=== PATIENT | male | born 1950 | race Caucasian/White ===

== ENCOUNTER → 2022-07-06 | Outpatient (CLI) | payer MEDICARE ==
[~2022-07-06] MED LIST: 5-HY100C3 PO; AEC81 PO; ALBUHFA IH; ALOE JUICE PO; CONDROITIN PO; FISH PO; FLAX PO; GLUCOSE PO; ISOS60TA77 PO; LIFE PO; LISI1TAB49 PO; MESA800T PO; METO-391 PO; NITR0.4T SL; OMEGA PO; OMEP20CA12 PO; PITA4TAB2 PO; RANO10003 PO; RESV100C PO; TIOT18CA3 IH; UBID400C8 PO; VITA-73 PO
== END | disposition home or self-care (01) ==
LOC: SHCH 11:33
PROVIDERS: ATTEND Internal Medicine Cardiovascular Disease
DX: I25.10 Atherosclerotic heart disease of native coronary artery without angina pectoris (principal)
CPT/HCPCS: 93306

== ENCOUNTER 2022-09-02 06:27 | Observation (INO) | payer MEDICARE ==
[2022-08-30 11:49] LABS: BASOPHILS % (AUTO) 0.4 % (0.0-5.0); EOSINOPHILS % (AUTO) 2.6 % (0.0-8.0); HEMATOCRIT 42.9 % (42-54); LYMPHOCYTES % (AUTO) 15.6 % (21.0-51.0); MEAN CORPUSCULAR HEMOGLOBIN 31.1 pg (27.0-33.0); MEAN CORPUSCULAR HGB CONC 33.1 g/dL (32.0-36.0); MEAN CORPUSCULAR VOLUME 94.1 fL (79-99); MONOCYTES % (AUTO) 10.1 % (3.0-13.0); PLATELET COUNT (AUTO) 138 K/uL (130-400); RED BLOOD CELL COUNT(AUTO) 4.56 MIL/uL (4.50-6.20); RED CELL DISTRIBUTION WIDTH 12.8 % (11.0-15.5); WHITE BLOOD COUNT (AUTO) 6.9 K/uL (4.8-10.8)
[2022-08-30 11:53] VITALS: BP 141/65
[2022-08-30 12:02] LABS: APPEARANCE,URINE CLEAR (CLEAR); BILIRUBIN,URINE NEGATIVE (NEGATIVE); COLOR,URINE YELLOW (YELLOW); GLUCOSE, URINE (UA) NEGATIVE (NEGATIVE); KETONES,URINE NEGATIVE (NEGATIVE); LEUKOCYTE ESTERASE ,URINE NEGATIVE Leu/uL (NEGATIVE); NITRATE,URINE NEGATIVE (NEGATIVE); OCCULT BLOOD,URINE NEGATIVE (NEGATIVE); PH,URINE 5.5 (5.0-8.0); PROTEIN,URINE 10 mg/dL (NEGATIVE); UROBILINOGEN,URINE 0.2 mg/dL (0.2-1.0)
[2022-08-30 12:03] LABS: CREATININE 1.3 mg/dL (0.5-1.5); INR 0.98 (0.85-1.15); POTASSIUM 4.7 mmol/L (3.5-5.1); PROTHROMBIN TIME 11.4 SEC (9.6-11.6)
[2022-08-30 12:05] LABS: PARTIAL THROMBOPLASTIN TIME 25.9 SEC (26.3-35.5)
[2022-08-30 12:14] LABS: BACTERIA,URINE RARE /HPF (None Seen); MUCUS,URINE FEW LPF (None Seen); OTHER CASTS, URINE 6 /LPF (None Seen)
[2022-08-30 12:18] LABS: B-TYPE NATRIURETIC PEPTIDE 39 pg/mL (0-100)
[~2022-09-02] VITALS: Ht 170.2 cm; Wt 93.0 kg
[2022-09-02] VITALS (10 sets, daily range): BP systolic 99–150; BP diastolic 49–81
[~2022-09-02 06:27] MED LIST changes: -5-HY100C3 PO; +ALBU0.63 IH; -ALOE JUICE PO; -CONDROITIN PO; +EZET-59 PO; -FISH PO; -FLAX PO; -GLUCOSE PO; -ISOS60TA77 PO; -LIFE PO; -LISI1TAB49 PO; -MESA800T PO; -NITR0.4T SL; -OMEGA PO; -OMEP20CA12 PO; +PANT40TA54 PO; -PITA4TAB2 PO; -RESV100C PO; +SERT100T PO; +TAMS-1 PO; -UBID400C8 PO; -VITA-73 PO
[2022-09-02] MEDS ORDERED: FENTANYL CITRATE PF 50 MCG/1 ML 2ML VIAL ONE ×4 (10:02→13:42)
[2022-09-02] MEDS ORDERED: MIDAZOLAM HCL 1 MG/ML 2ML VIAL ONE ×3 (10:02→14:21)
[2022-09-02] MEDS ORDERED: LIDOCAINE HCL 400MG/20ML VIAL ONE (10:02)
[2022-09-02] MEDS ORDERED: IOHEXOL 350 MG/ML 100ML INFUS..BTL IV ONE (10:02)
[2022-09-02] MEDS ORDERED: NITROGLYCERIN 50MG VIAL ONE (10:02)
[2022-09-02] MEDS ORDERED: IOHEXOL-350 50ML VIAL IV ONE ×3 (10:02→13:12)
[2022-09-02] MEDS ORDERED: MULTIVITAMIN PO ×2 (10:32)
[2022-09-02] MEDS ORDERED: VITAMIN B12 PO ×2 (10:32)
[2022-09-02] MEDS ORDERED: 0.9%NACL 1000ML 1,000 ML IV ONE (10:33)
[2022-09-02] MEDS ORDERED: BIVALIRUDIN 250 MG/VIAL IV ONE ×3 (11:09→13:56)
[2022-09-02] MEDS ORDERED: CLOPIDOGREL 300MG TAB ONE ×2 (11:13→11:16)
[2022-09-02] MEDS ORDERED: ASPIRIN 325MG EC TAB PO ONE ×2 (11:13→11:15)
[2022-09-02] MEDS ORDERED: LABETALOL 20MG SYG IV ONE (13:53)
[2022-09-02] MEDS ORDERED: EPTIFIBATIDE 2 MG/ML 10 ML VIAL IVP ONE (14:09)
[2022-09-02] MEDS ORDERED: EPTIFIBATIDE 75MG/100ML BOTTLE 100 ML IV ONE (14:09)
[2022-09-02] MEDS ORDERED: ONDANSETRON 4MG INJ ONE (14:57)
[2022-09-02] MEDS ORDERED: ALBUTEROL INHALER 90MCG/INH IH PRN (15:30)
[2022-09-02] MEDS ORDERED: ONDANSETRON 4MG INJ IVP PRN (15:30)
[2022-09-02] MEDS ORDERED: NITROGLYCERIN 50MG/D5W 250ML 1 BOT IV PRN (15:30)
[2022-09-02] MEDS ORDERED: SUB TO IPRATROPIUM 0.5MG/2.5ML PER P&T IH PRN (15:30)
[2022-09-02] MEDS ORDERED: 0.9%NACL 1000ML 1,000 ML IV SCH (15:30)
[2022-09-02] MEDS ORDERED: EPTIFIBATIDE 75MG/100ML BOTTLE 100 ML IV SCH (15:30)
[2022-09-02] MEDS ORDERED: ACETAMINOPHEN WITH CODEINE 1 TAB TAB PO PRN (15:30)
[2022-09-02] MEDS ORDERED: TEMAZEPAM 30 MG CAP PO PRN (15:30)
[2022-09-02] MEDS ORDERED: IPRATROPIUM 0.5 MG/2.5 ML INH IH PRN (16:00)
[2022-09-02] MEDS: ALBUTEROL 0.63 MG IH SCH (18:00)
[2022-09-02] MEDS: RANOLAZINE 500 MG TAB.SR.12H PO SCH (20:49)
[2022-09-02] MEDS: ACETAMINOPHEN WITH CODEINE 1 TAB TAB PO PRN (20:53)
[2022-09-02] MEDS ORDERED: EZETIMIBE 10 MG TAB PO SCH (21:00)
[2022-09-02] MEDS ORDERED: NON-FORMULARY MEDICATION 1 EACH (Sertraline HCl (Zoloft) 100 MG) PO SCH (21:00)
[2022-09-02] MEDS ORDERED: METOPROLOL SUCCINATE 50 MG TAB.SR.24H PO SCH (21:00)
[2022-09-02] MEDS ORDERED: NON-FORMULARY MEDICATION 1 EACH (Ranolazine (Ranexa) 1,000 MG) PO SCH (21:00)
[2022-09-02] MEDS ORDERED: SERTRALINE HCL 50 MG TABLET PO SCH (21:00)
[2022-09-02] MEDS ORDERED: SIMVASTATIN 20 MG TABLET PO SCH (21:00)
[2022-09-03 00:12] VITALS: BP 105/64
[2022-09-03] MEDS: ACETAMINOPHEN WITH CODEINE 1 TAB TAB PO PRN (01:00)
[2022-09-03 03:12] VITALS: BP 99/56
[2022-09-03 03:52] LABS: HEMATOCRIT 34.9 % (42-54); MEAN CORPUSCULAR HEMOGLOBIN 31.4 pg (27.0-33.0); MEAN CORPUSCULAR HGB CONC 33.5 g/dL (32.0-36.0); MEAN CORPUSCULAR VOLUME 93.6 fL (79-99); RED BLOOD CELL COUNT(AUTO) 3.73 MIL/uL (4.50-6.20); RED CELL DISTRIBUTION WIDTH 12.9 % (11.0-15.5); WHITE BLOOD COUNT (AUTO) 10.6 K/uL (4.8-10.8)
[2022-09-03 04:06] LABS: CREATININE 1.4 mg/dL (0.5-1.5); POTASSIUM 4.9 mmol/L (3.5-5.1)
[2022-09-03] MEDS: ALBUTEROL 0.63 MG IH SCH ×2 (06:00)
[2022-09-03] MEDS ORDERED: 0.9% NACL 500ML IV.SOLN 500 ML IV SCH (07:30)
[2022-09-03] MEDS ORDERED: NAPROXEN 500 MG TABLET PO ONE (07:30)
[2022-09-03 08:42] VITALS: BP 107/58
[2022-09-03] MEDS: RANOLAZINE 500 MG TAB.SR.12H PO SCH (08:45)
[2022-09-03 08:59] VITALS: BP 95/48
[2022-09-03] MEDS ORDERED: ASPIRIN 81MG CHEW TAB PO SCH (09:00)
[2022-09-03] MEDS ORDERED: TAMSULOSIN HCL 0.4 MG CAP.ER.24H PO SCH (09:00)
[2022-09-03] MEDS ORDERED: CLOPIDOGREL 75MG TAB PO SCH (09:00)
[2022-09-03] MEDS ORDERED: PANTOPRAZOLE 40 MG TAB DR PO SCH (09:00)
[2022-09-03] MEDS ORDERED: ASPIRIN 81 MG EC TAB PO SCH (09:00)
[2022-09-08] MEDS ORDERED: CLOP-31 PO (15:06)
[2022-09-09] MEDS ORDERED: DOCU-280 PO (04:19)
[2022-09-09] MEDS ORDERED: 5-HY100C3 PO (04:19)
[2022-09-09] MEDS ORDERED: UBID1CAP56 PO (04:20)
[2022-09-09] MEDS ORDERED: NITR0.4T50 SL (04:23)
== END 2022-09-03 14:39 | disposition home or self-care (01) ==
LOC: DAH 06:27 → DAHIP 06:28 → INTOOBSV 06:28 → 2DH 17:40
PROVIDERS: ADMIT Internal Medicine; ATTEND Internal Medicine
DX: I25.5 Ischemic cardiomyopathy (principal); I25.112 Atherosclerotic heart disease of native coronary artery with refractory angina pectoris; I10 Essential (primary) hypertension; E78.5 Hyperlipidemia, unspecified; Z79.02 Long term (current) use of antithrombotics/antiplatelets; Z79.899 Other long term (current) drug therapy
CPT/HCPCS: 80048 ×2; 83880; 85025; 85610; 85730; 81001; 36415 ×2; 71045; 93005 ×2; 0715T; 93459; 96365; 96366 ×2; 80061; 85027; 82948; 73030; C9600 ×2; C1761; C1769 ×4; C1887 ×3; C1894 ×2; C1725 ×3; C1760; C1874 ×2; J3010 ×4; J3490 ×2; J7030; J2250 ×3; J2405; J1327 ×3; J1644 ×3; J0583 ×3; Q9967 ×4; A4215; A4222; A4221; A4663; A4216; A4606; Q9965 ×2; G0378; A4223 ×3; 99156; 99157

== ENCOUNTER 2022-09-02 06:55 | Emergency (ER) | payer MEDICARE ==
[~2022-09-02] VITALS: Ht 170.2 cm; Wt 92.5 kg
[2022-09-02 07:17] LABS: BASOPHILS % (AUTO) 0.5 % (0.0-5.0); EOSINOPHILS % (AUTO) 3.1 % (0.0-8.0); HEMATOCRIT 40.9 % (42-54); LYMPHOCYTES % (AUTO) 22.8 % (21.0-51.0); MEAN CORPUSCULAR HEMOGLOBIN 31.2 pg (27.0-33.0); MEAN CORPUSCULAR HGB CONC 33.5 g/dL (32.0-36.0); MEAN CORPUSCULAR VOLUME 93.2 fL (79-99); MONOCYTES % (AUTO) 12.6 % (3.0-13.0); NEUTROPHILS % (AUTO) 60.5 % (40.0-77.0); PLATELET COUNT (AUTO) 115 K/uL (130-400); RED BLOOD CELL COUNT(AUTO) 4.39 MIL/uL (4.50-6.20); RED CELL DISTRIBUTION WIDTH 12.7 % (11.0-15.5)
[2022-09-02 07:24] LABS: CREATININE 1.1 mg/dL (0.5-1.5); POTASSIUM 4.6 mmol/L (3.5-5.1)
[2022-09-02 07:26] LABS: INR 0.98 (0.85-1.15); PROTHROMBIN TIME 11.4 SEC (9.6-11.6)
[2022-09-02 07:30] LABS: ALBUMIN 3.6 g/dL (3.5-5.0); MAGNESIUM 1.9 mg/dL (1.80-2.40); TOTAL PROTEIN, SERUM 6.4 g/dL (6.0-8.3)
[2022-09-02 08:27] LABS: PARTIAL THROMBOPLASTIN TIME 26.9 SEC (26.3-35.5)
[2022-09-02 08:28] VITALS: BP 148/73
[2022-09-02] MEDS ORDERED: ASPIRIN 81MG CHEW TAB PO ONE (08:30)
[2022-09-02] MEDS ORDERED: VITAMIN B12 PO ×2 (10:32)
[2022-09-02] MEDS ORDERED: MULTIVITAMIN PO ×2 (10:32)
[2022-09-08] MEDS ORDERED: CLOP-31 PO (15:06)
[2022-09-09] MEDS ORDERED: DOCU-280 PO (04:19)
[2022-09-09] MEDS ORDERED: 5-HY100C3 PO (04:19)
[2022-09-09] MEDS ORDERED: UBID1CAP56 PO (04:20)
[2022-09-09] MEDS ORDERED: NITR0.4T50 SL (04:23)
== END 2022-09-02 08:33 | disposition home or self-care (01) ==
LOC: EDH 06:55
DX: R07.89 Other chest pain (principal); I25.810 Atherosclerosis of coronary artery bypass graft(s) without angina pectoris; E78.00 Pure hypercholesterolemia, unspecified; I10 Essential (primary) hypertension; E11.9 Type 2 diabetes mellitus without complications; Z79.899 Other long term (current) drug therapy; Z79.82 Long term (current) use of aspirin; Z95.1 Presence of aortocoronary bypass graft; Z95.5 Presence of coronary angioplasty implant and graft
CPT/HCPCS: 36415; 71045; 80053; 80061; 82550; 83735; 83874; 83880; 84484; 85025; 85378; 85610; 85730; 93005